=== PATIENT | male | born 1980 | race Caucasian/White ===

== ENCOUNTER 2017-09-18 00:08 | Emergency (ER) | payer OTHER ==
[~2017-09-18] VITALS: Ht 180.3 cm; Wt 79.4 kg
[2017-09-18] MEDS ORDERED: LAMICTAL100 M2 PO (00:23)
[2017-09-18] MEDS ORDERED: ADDERALL XR 3030 MG PO (00:23)
[2017-09-18] MEDS ORDERED: TYLENOL WITH C1 EACH PO (01:06)
[2017-09-18] MEDS ORDERED: IBUPROFEN800 M1 PO (01:06)
--- NOTE | 2017-09-18 01:07 | ED HAND/WRIST INJURY COMPLAINT ---
History of Present Illness General Chief Complaint: Upper Extremity Injury Stated Complaint: " ?LT INDEX FINGER INJURY" Source: patient Exam Limitations: no limitations Vital Signs & Intake/Output Vital Signs & Intake/Output Vital Signs Date Time Temp Pulse Resp B/P B/P Pulse O2 O2 Flow FiO2 Mean Ox Delivery Rate 09/18 0145 97.2 88 16 126/79 99 Room Air 09/18 0024 Room Air 09/18 0020 97.4 94 16 129/74 100 Room Air Allergies Coded Allergies: No Known Allergies (09/18/17) Reconcile Medications Dextroamphetamine/Amphetamine (Adderall XR 30 MG Capsule) 30 MG CAP.ER.24H 1 CAP PO DAILY ADHD (Reported) Ibuprofen 800 MG TABLET 1 TAB PO TID PRN PAIN Lamotrigine (Lamictal) 100 MG TABLET 1 TAB PO DAILY MOOD (Reported) Tylenol With Codeine (Tylenol With Codeine #3 Tablet) 300 MG-30 MG TABLET 1 TAB PO Q4-6 PRN PRN PAIN Triage Note: PT TO TRIAGE S/P DROPPING METAL OBJECT ON L INDEX FINGER YESTERDAY. EVAL'D BY REX Jang Triage Nurses Notes Reviewed? yes Occurred: just prior to arrival Duration: day(s): (2), constant, continues in ED Timing: single episode today Injury Environment: work Severity: moderate, severe Severity Numbers: 7 Pain/Injury Location: Left: 2nd finger. Context: crush Method of Injury: direct blow No Modifying Factors: none Associated Symptoms: swelling HPI: 37-year-old male with no past medical history essential evaluation of pain and swelling to his left index finger. He states that he dropped a metal grate on it while at work 2 days ago. He reports pain swelling and bruising to the left second digit. No numbness or tingling. Pain is worse with movement. No other injury is unsure of his last tetanus shot. (Don Copeland) Past History Travel History Traveled to [place] past 21 day No Medical History Any Pertinent Medical History? 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 No (Don Copeland) Review of Systems Review of Systems Constitutional: Reports: no symptoms. EENTM: Reports: no symptoms. Respiratory: Reports: no symptoms. Cardiovascular: Reports: no symptoms. GI: Reports: no symptoms. Genitourinary: Reports: no symptoms. Musculoskeletal: Reports: joint pain, joint swelling, muscle pain. Skin: Reports: no symptoms. Neurological/Psychological: Reports: no symptoms. Hematologic/Endocrine: Reports: no symptoms. Immunologic/Allergic: Reports: no symptoms. All Other Systems: Reviewed and Negative (Don Copeland) Physical Exam Physical Exam General Appearance: well developed/nourished, no apparent distress, alert Head: atraumatic, normal appearance Eyes: Bilateral: normal appearance, EOMI. Ears, Nose, Throat: hearing grossly normal Neck: normal inspection, supple, full range of motion Cardiovascular/Respiratory: no respiratory distress Forearm Left: normal range of motion, normal inspection Forearm Right: normal range of motion, normal inspection Wrist Left: normal range of motion, normal inspection Wrist Right: normal range of motion, normal inspection Hand Left: limited range of motion, nail injury, evidence of injury, swelling, tender, 2nd finger, tHERE IS TENDERNESS TO PALPATION AND SWELLING TO THE DISTAL SEGMENT OF THE LEFT SECOND DIGIT. tHERE IS A HEMATOMA PRESENT JUST PROXIMAL TO THE NAIL BED. tHERE IS A SMALL SUBUNGUAL HEMATOMA PRESENT LOCATED IN THE PROXIMAL SEGMENT OF THE NAIL ONLY. rANGE OF MOTION OF THE DISTAL SEGMENT IS REDUCED DUE TO PAIN AND SWELLING. nO GROSS DEFORMITY Hand Right: normal inspection, normal range of motion Neurologic/Tendon: normal sensation, normal motor functions, normal tendon functions, responds to pain, no evidence tendon injury, no pulse deficit Skin: intact, normal color, warm/dry (Don Copeland) Progress Differential Diagnosis: contusion, compartment syndrome, dislocation, fracture, paronychia, septic arthritis, sprain, tenosynovitis Plan of Care: Orders Procedure Date/time Status XRY-HAND, 3 View LEFT 09/18 001 Active Patient seen and evaluated. He had a crush injury to the left second digit. There is a hematoma and subungual hematoma present. X-ray ordered tetanus updated. X-ray shows a nondisplaced tuft fracture. Patient placed into a splint. Patient was given a digital block of the left second digit. The hematoma was drained using an 18-gauge needle. There is only a small amount of a subungual hematoma so the nail bed itself was not drained. Patient be covered with antibiotics cephalexin. Tylenol with Codeine ibuprofen for pain. Return in 2 days for a wound check. Return sooner with spreading subungual hematoma or any other concerns. Rest apply ice discussed return precautions patient agrees. Diagnostic Imaging: Viewed by Me: Radiology Read. Discussed w/RAD: Radiology Read. Radiology Impression: PATIENT: YVES MEANS PRESENT AGE: 37 PATIENT ACCOUNT NO: [id number] : 82 LOCATION: [facility] ORDERING PHYSICIAN: Don GOODMAN SERVICE DATE: 09/18/17 EXAM TYPE: RAD - XRY- HAND, LEFT EXAMINATION: XR HAND, LEFT CLINICAL INFORMATION: Crush injury to distal segment of left index finger COMPARISON: None TECHNIQUE: PA, lateral, and oblique views of the left hand. FINDINGS: There is a suspected nondisplaced tuft fracture of the distal phalanx of the second digit. Surrounding soft tissue swelling is noted. Remaining osseous structures appear intact. There is anatomic alignment throughout the hand. IMPRESSION: Suspect nondisplaced tuft fracture of the second distal phalanx. DICTATED BY: Pk Steward MD DATE/TIME DICTATED:119 MARGIN ANALYST:SHREYA DATE/TIME TRANSCRIBED:09/18/17119 CONFIDENTIAL, DO NOT COPY WITHOUT APPROPRIATE AUTHORIZATION. <Electronically signed in Other Vendor System> SIGNED BY: Pk Steward MD 09/18/17125 (Don Copeland) Departure Departure Disposition: HOME OR SELF CARE Condition: Stable Clinical Impression Primary Impression: Finger fracture, left Qualifiers: Encounter type: initial encounter Finger: index finger Fracture type: closed Phalanx: distal Fracture alignment: nondisplaced Qualified Code: S62.661A - Nondisplaced fracture of distal phalanx of left index finger, initial encounter for closed fracture Referrals: Patient Has No Primary Care Dr (PCP/Family) Additional Instructions: Keep the area clean and dry. Apply ice 15-20 minutes every few hours. Tylenol and ibuprofen for pain Tylenol with codeine for severe pain. Return in 2 days for a wound check. Take antibiotics as directed for the full course. Wear splint at all times until then. On its her symptoms. If YOU notices bruising that is increasing under the nail worsening swelling worsening pain or any other concerns return immediately. Departure Forms: Customer Survey General Discharge Information Prescriptions: Current Visit Scripts Ibuprofen 1 TAB PO TID PRN PAIN #30 TAB Tylenol With Codeine (Tylenol With Codeine #3 Tablet) 1 TAB PO Q4-6 PRN PRN PAIN #10 TAB (Don Copeland) PA/HEARING SPECIALIST Co-Sign Statement Statement: ED Attending supervision documentation- I saw and evaluated the patient. I have also reviewed all the pertinent lab results and diagnostic results. I agree with the findings and the plan of care as documented in the PA's/HEARING SPECIALIST's documentation. x I have reviewed the ED Record and agree with the PA's/HEARING SPECIALIST's documentation. [] Additions or exceptions (if any) to the PAs/HEARING SPECIALIST's note and plan are summarized below: [] (Yunier WHITTAKER,Jabari)
--- NOTE | 2017-09-18 01:26 | RADIOLOGY REPORT ---
EXAMINATION: XR HAND, LEFT CLINICAL INFORMATION: Crush injury to distal segment of left index finger COMPARISON: None TECHNIQUE: PA, lateral, and oblique views of the left hand. FINDINGS: There is a suspected nondisplaced tuft fracture of the distal phalanx of the second digit. Surrounding soft tissue swelling is noted. Remaining osseous structures appear intact. There is anatomic alignment throughout the hand. IMPRESSION: Suspect nondisplaced tuft fracture of the second distal phalanx.
[2017-09-18 01:45] VITALS: BP 126/79
== END 2017-09-18 01:46 ==
LOC: ERH 00:08
DX: S62.631A Displaced fracture of distal phalanx of left index finger, initial encounter for closed fracture (principal); W20.8XXA Other cause of strike by thrown, projected or falling object, initial encounter; Y92.9 Unspecified place or not applicable; Y93.9 Activity, unspecified
CPT/HCPCS: 73130-LT; 90471; 90714; J2001

== ENCOUNTER 2017-09-23 16:13 | Emergency (ER) | payer OTHER ==
[~2017-09-23] VITALS: Ht 180.3 cm; Wt 79.4 kg
[~2017-09-23 16:13] MED LIST: ADDERALL XR 3030 MG PO; IBUPROFEN800 M1 PO; LAMICTAL100 M2 PO; TYLENOL WITH C1 EACH PO
[2017-09-23 16:21] VITALS: BP 143/80
--- NOTE | 2017-09-23 18:25 | ED HAND/WRIST INJURY COMPLAINT ---
History of Present Illness General Chief Complaint: Hand or Wrist Injury Stated Complaint: PT IS FOLLOWING UP WITH HIS BROKEN FINGER Source: patient Exam Limitations: no limitations Vital Signs & Intake/Output Vital Signs & Intake/Output ED Intake and Output 09/24 0000 09/23 1200 Intake Total Output Total Balance Patient 175 lb Weight Weight Reported by Patient Measurement Method Allergies Coded Allergies: No Known Allergies (09/18/17) Reconcile Medications Dextroamphetamine/Amphetamine (Adderall XR 30 MG Capsule) 30 MG CAP.ER.24H 1 CAP PO DAILY ADHD (Reported) Ibuprofen 800 MG TABLET 1 TAB PO TID PRN PAIN Lamotrigine (Lamictal) 100 MG TABLET 1 TAB PO DAILY MOOD (Reported) Tylenol With Codeine (Tylenol With Codeine #3 Tablet) 300 MG-30 MG TABLET 1 TAB PO Q4-6 PRN PRN PAIN Triage Note: PT RETURNS TO ED, SEEN ON September FOR FINGER FRACTURE, ARRIVES WITH FINGER SPLINT TO LEFT INDEX FINGER, "THE NAIL MIGHT HAVE TO BE DRAINED AGAIN". Triage Nurses Notes Reviewed? yes Occurred: last week Duration: day(s): (5), better, continues in ED Timing: single episode today Injury Environment: home Severity: mild, moderate Severity Numbers: 5 Pain/Injury Location: Left: 2nd finger. Context: blow Method of Injury: direct blow No Modifying Factors: none Associated Symptoms: swelling HPI: 37-year-old male presents for reevaluation of a fracture to his left index finger patient was seen here 5 days ago after he hit his finger at work causing a tuft fracture and subungual hematoma. Patient has been wearing the splint keeping the finger elevated taking about excess directed. He states that his pain has improved but there is still some swelling. He is here to get paperwork for his job filled out. He denies any numbness tingling. No fevers or spreading redness or discharge. (Don Copeland) Past History Travel History Traveled to [place] past 21 day No Medical History Any Pertinent Medical History? 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 No (Don Copeland) Review of Systems Review of Systems Constitutional: Reports: no symptoms. EENTM: Reports: no symptoms. Respiratory: Reports: no symptoms. Cardiovascular: Reports: no symptoms. GI: Reports: no symptoms. Genitourinary: Reports: no symptoms. Musculoskeletal: Reports: see HPI, joint pain, joint swelling. Skin: Reports: no symptoms. Neurological/Psychological: Reports: no symptoms. Hematologic/Endocrine: Reports: no symptoms. Immunologic/Allergic: Reports: no symptoms. All Other Systems: Reviewed and Negative (Don Copeland) Physical Exam Physical Exam General Appearance: well developed/nourished, no apparent distress, alert, awake Head: atraumatic, normal appearance Eyes: Bilateral: normal appearance, EOMI. Ears, Nose, Throat: hearing grossly normal Neck: normal inspection, supple, full range of motion Cardiovascular/Respiratory: no respiratory distress Forearm Left: normal range of motion, normal inspection Forearm Right: normal range of motion, normal inspection Wrist Left: normal range of motion, normal inspection Wrist Right: normal range of motion, normal inspection Hand Left: ecchymosis, evidence of injury, swelling, tender, 2nd finger, THERE IS SWELLING TO THE DISTAL SEGMENT OF THE LEFT SECOND DIGIT. sMALL SUBUNGUAL HEMATOMA PRESENT. nO ERYTHEMA OR PURULENT DISCHARGE. fINGER IS IN A SPLINT RANGE OF MOTION IS REDUCED, NEUROVASCULAR SUPPLY INTACT Hand Right: normal inspection, normal range of motion Neurologic/Tendon: normal sensation, normal motor functions, normal tendon functions, responds to pain, no evidence tendon injury, no pulse deficit Skin: intact, normal color, warm/dry (Don Copeland) Progress Differential Diagnosis: abscess, cellulitis, contusion, compartment syndrome, dislocation, fracture, gout, septic arthritis, sprain, tenosynovitis Plan of Care: Patient seen and evaluated. He is here for a recheck of his finger. No signs of infection. Hematoma does not appear to be expanding at this time. Continue rest ice elevation depression with splint. Follow up with hand surgeon for another recheck. Continue antibiotics for the full course. Paperwork filled out for the patient's work. Discussed return precautions patient agrees the plan. (Don Copeland) Departure Departure Disposition: HOME OR SELF CARE Condition: Stable Clinical Impression Primary Impression: Finger fracture, left Qualifiers: Encounter type: subsequent encounter Finger: index finger Fracture type: closed Phalanx: distal Fracture alignment: nondisplaced Fracture healing: with routine healing Qualified Code: S62.661D - Nondisplaced fracture of distal phalanx of left index finger, subsequent encounter for fracture with routine healing Referrals: Patient Has No Primary Care Dr (PCP/Family) Flaco WHITTAKER,Wicho Charles Additional Instructions: CONTINUE TO WEAR SPLINT, APPLY ICE AND USE TYLENOL/IBUPROFEN. MAKE A FOLLOW UP WITH DR JONES HAND SURGEON APRIL. MONOTR YOUR SYMPTOMS. IF YO UHAVE WORSENING PAIN, SWELLING OR ANY OTHER CONCERNS RETURN TO THE ED. Departure Forms: Customer Survey General Discharge Information (Don Copeland) PA/REVENUE CYCLE ANALYST Co-Sign Statement Statement: ED Attending supervision documentation- [] I saw and evaluated the patient. I have also reviewed all the pertinent lab results and diagnostic results. I agree with the findings and the plan of care as documented in the PA's/REVENUE CYCLE ANALYST's documentation. [x] I have reviewed the ED Record and agree with the PA's/REVENUE CYCLE ANALYST's documentation. [] Additions or exceptions (if any) to the PAs/REVENUE CYCLE ANALYST's note and plan are summarized below: [] (Javi Amor DO)
== END 2017-09-23 18:28 ==
LOC: ERH 16:13
DX: S62.631 Displaced fracture of distal phalanx of left index finger (principal); W20.8XXS Other cause of strike by thrown, projected or falling object, sequela